=== PATIENT | female | born 2000 | race Caucasian/White ===

== ENCOUNTER 2023-02-23 01:06 | Emergency (ER) | payer OTHER, SELFPAY ==
[2023-02-23 01:12] VITALS: BP 152/111; PULSE 111; RESP 14; TEMP 37.1; O2SAT 100
--- NOTE | 2023-02-23 01:32 | PC.NURSE ---
pt sts that 2 days ago pt noticed a bump on her labia. pt has not looked at bump. pt only wants females
--- NOTE | 2023-02-23 01:52 | ED.GENADULT ---
HPI - General Adult General Chief complaint: Unspecified Stated complaint: STI testing Time Seen by Provider: 02/23/23 01:43 Source: patient Mode of arrival: ambulatory Limitations: no limitations History of Present Illness HPI narrative: Patient is a 22 y/o female who presents to the ED with c/o concern for STDs. Patient reports she noticed a bump on her left inner labia tonight. She is concerned for herpes or genital warts. She denies recent STD exposure and states she is in a monogamous relationship with her currently. She is worried about latent herpes however. She denies any pain or burning associated with the bump. She does report mild dysuria. Denies hematuria. Denies fevers. Denies abnormal vaginal bleeding or discharge. Related Data Allergies Allergy/AdvReac Type Severity Reaction Status Date / Time No Known Allergies Allergy Verified 02/23/23 01:35 Review of Systems Review of Systems: CONSTITUTIONAL: Denies fever, chills, or sweats. CARDIOVASCULAR: Denies chest pain. RESPIRATORY: Denies dyspnea. GASTROINTESTINAL: Denies abdominal pain, nausea, vomiting, or diarrhea. GENITOURINARY: See HPI. SKIN: Denies rash or itching. MUSCULOSKELETAL: Denies back pain, joint pain, or myalgia. All systems reviewed & are unremarkable except as noted in HPI and below Exam Narrative: GENERAL: Well appearing, obese with BMI 49.3, non-toxic, in no acute distress. HEAD: Normocephalic, atraumatic. NECK: Supple. No adenopathy, no masses. RESPIRATORY: Airway patent, respirations nonlabored. CARDIOVASCULAR: Regular rate and rhythm without murmurs, rubs, or gallops. Peripheral pulses 2+ and equal bilaterally. ABDOMINAL: Soft, nontender, nondistended, no hepatosplenomegaly. Normoactive BS. PELVIC: Normal external genitalia. Small amount of physiologic vaginal discharge. No abnormal discharge or bleeding. No significant CMT. No genital lesions. No evidence of herpes simplex, HPV. MUSCULOSKELETAL: Moves all extremities. Strength/ROM intact without gross deformities. SKIN: Warm, dry, normal color. No rashes. NEURO: A&O X3. Speech clear. Cranial nerves II-XII grossly intact. Steady gait. No ataxic movements. PSYCHIATRIC: Anxious, tearful. Normal interaction. Course Vital Signs Vital signs: Vital Signs Temperature 98.7 F 02/23/23 01:12 Pulse Rate 111 H 02/23/23 01:12 Respiratory Rate 14 02/23/23 01:12 Blood Pressure 152/111 H 02/23/23 01:12 Pulse Oximetry 100 02/23/23 01:12 Oxygen Delivery Room Air 02/23/23 01:12 Temperature 98.7 F 02/23/23 01:12 Pulse Rate 111 H 02/23/23 01:12 Respiratory Rate 14 02/23/23 01:12 Blood Pressure 152/111 H 02/23/23 01:12 Pulse Oximetry 100 02/23/23 01:12 Oxygen Delivery Room Air 02/23/23 01:12 Medical Decision Making MDM Narrative Medical decision making narrative: Urine consistent with UTI. Will treat as patient symptomatic. Keflex. Pelvic exam unremarkable. No signs of genital herpes lesions. No other significant abnormalities. Patient wanted to be tested for STDs, swabs sent. She does not want to be treated at this time. Will await results. Patient given return precautions. Discharged in stable condition. Medical Records Medical records reviewed: Yes I reviewed the external patient's medical records. Vital Signs Vital Signs: Vital Signs Temperature 98.7 F 02/23/23 01:12 Pulse Rate 111 H 02/23/23 01:12 Respiratory Rate 14 02/23/23 01:12 Blood Pressure 152/111 H 02/23/23 01:12 Pulse Oximetry 100 02/23/23 01:12 Oxygen Delivery Room Air 02/23/23 01:12 Temperature 98.7 F 02/23/23 01:12 Pulse Rate 111 H 02/23/23 01:12 Respiratory Rate 14 02/23/23 01:12 Blood Pressure 152/111 H 02/23/23 01:12 Pulse Oximetry 100 02/23/23 01:12 Oxygen Delivery Room Air 02/23/23 01:12 Lab Data Lab results reviewed: Yes I reviewed the patient's lab results. Labs: Lab Results 02/23/23 02/23/23 R
[2023-02-23 02:15] VITALS: BP 164/94; PULSE 84; RESP 16; TEMP 36.3; O2SAT 98
[2023-02-23 02:47] LABS: Appearance Urine Cloudy (Clear); Bacteria Urine 4+ /hpf; Bilirubin Urine Negative (Negative); Blood Urine Negative (Negative); Color Urine Yellow (Yellow); Glucose Urine UA Negative (Negative); Ketones Urine Trace mg/dL (Negative); Leukocyte Esterase Ur Trace LEU/UL (Negative); Need Manual Microscopic Reviewed; Nitrate Urine Negative (Negative); Protein Urine Negative (Negative); RBC Urine 21-50 /hpf (0-2); Specific Grav Ur 1.033 (1.001-1.035); Squamous Epithelial Cell Urine Few /hpf (Few); Urobilinogen Urine 0.2 mg/dL (<2.0); pH Urine 5.5 (5.0-9.0)
[2023-02-23 02:48] LABS: Add Urine Microscopic? YES
[2023-02-23] MEDS: CEPHALEXIN 500 MG CAPSULE PO (03:08)
== END 2023-02-23 03:12 | disposition home or self-care (01) ==
PROVIDERS: Emergency Provider Physician Assistant
DX: N30.01 Acute cystitis with hematuria (principal); Z20.2 Contact with and (suspected) exposure to infections with a predominantly sexual mode of transmission
CPT/HCPCS: 81001; 87070; 87077; 87086; 87088; 87186; 87491; 87591; 87808; 99284; A9270

== ENCOUNTER 2023-04-16 21:43 | Emergency (ER) | payer OTHER, SELFPAY ==
--- NOTE | ~2023-04-16 | XR_ITS ---
EXAMINATION: XR chest 2V Exam Date/Time: 04/16/2023 21:55 CDT HISTORY: chest pressure, sob Comparison: None. RESULT: Lines, tubes, and devices: None. Lungs and pleura: Clear. Cardiomediastinal silhouette: Normal. Other: No acute osseous or upper abdominal finding. IMPRESSION: No acute cardiopulmonary process. Reviewed, dictated and finalized at location K.
--- NOTE | 2023-04-16 21:44 | ECG_ITS ---
Measurements Intervals [place] Rate: 91 P: 17 MS: 148 QRS: -20 QRSD: 94 T: -3 QT: 366 QTc: 451 Interpretive Statements SINUS RHYTHM VOLTAGE CRITERIA FOR LVH BORDERLINE R WAVE PROGRESSION, ANTERIOR LEADS BORDERLINE T WAVE ABNORMALITY- ANT/INF LEADS BORDERLINE ECG NO PREVIOUS ECG AVAILABLE FOR COMPARISON Electronically Signed On 04-17-2023 7:02:59 CDT by Geoff Ashford D.O.
[2023-04-16 21:49] VITALS: BP 139/87; PULSE 89; RESP 20; TEMP 37; O2SAT 100
[2023-04-16 21:58] LABS: Basophils Absolute Auto 0.1 K/mm3 (0.0-0.1); Basophils Percent Auto 0.6 % (0.2-1.2); Eosinophils Absolute Auto 0.7 K/mm3 (0-0.3); Eosinophils Percent Auto 7.3 % (0-4.4); Hematocrit 41.5 % (37.0-47.0); Hemoglobin 13.8 g/dL (12.0-15.0); Immature Granulocyte Absolute 0.01 K/mm3 (0.00-0.031); Immature Granulocyte Percent A 0.1 % (0-0.5); Lymphocytes Absolute Auto 3.56 K/mm3 (0.9-3.2); Lymphocytes Percent Auto 39.9 % (18.3-44.2); Mean Corpuscular HGB Conc 33.3 g/dl (32-36); Mean Corpuscular Hemoglobin 28.8 pg (26-34); Mean Corpuscular Volume 86.5 fl (80-100); Mean Platelet Volume 11.4 fl (7.4-10.4); Monocytes Absolute Auto 0.8 K/mm3 (0.1-0.6); Monocytes Percent Auto 8.6 % (2.6-8.5); Neutrophils Absolute Auto 3.9 K/mm3 (1.3-6.7); Neutrophils Percent Auto 43.5 % (45.5-73.1); Platelet Count Result 260 k/mm3 (150-375); Red Cell Distribution Width 13.4 % (11.5-14.5); White Blood Count 8.9 K/mm3 (4.5-10.0)
[2023-04-16 22:08] LABS: Alanine Aminotransferase 28 U/L (6-35); Albumin Level 4.4 g/dL (3.5-5.1); Alkaline Phosphatase 75 U/L (38-126); Anion Gap 9 mmol/L (8-16); Aspartate Amino Transferase 32 U/L (14-36); Bilirubin,Total 0.7 mg/dL (0.2-1.3); Blood Urea Nitrogen 15 mg/dL (7-17); Calcium 9.2 mg/dL (8.4-10.2); Carbon Dioxide 24 mmol/L (22-30); Chloride 105 mmol/L (98-107); Estimated CRCL calculation 141 ml/min; Estimated Glomerular Filt Rate > 60; Glucose 101 mg/dL (65-110); Potassium 3.8 mmol/L (3.4-5.0); Sodium 138 mmol/L (137-145)
[2023-04-16 23:59] VITALS: O2SAT 100
--- NOTE | 2023-04-17 00:03 | ED.SOB ---
HPI - SOB/Dyspnea General Chief Complaint: Shortness of Breath/Dyspnea Stated Complaint: SOB, dizzy Time Seen by Provider: 04/16/23 23:58 History of Present Illness HPI Narrative: Patient is a 22-year-old female presenting with an episode of shortness of breath. States that earlier she felt very short of breath as well as lightheaded. States that she has been having nasal congestion which is typical of her seasonal allergies. States that she is also concerned that she has had a UTI for a very long time. States that she was started on antibiotics many weeks ago, she cannot remember when. States that she sometimes will take the antibiotics but usually she forgets. She continues to have dysuria and urinary frequency. No further complaints. Related Data Allergies Allergy/AdvReac Type Severity Reaction Status Date / Time No Known Allergies Allergy Verified 02/23/23 01:35 Review of Systems Review of Systems: All systems reviewed & are unremarkable except as noted in HPI and below Exam Narrative: GENERAL: Well-appearing, in no acute distress HEAD: Normocephalic, atraumatic. EYES: PERRLA and EOMI. ENT: Grossly unremarkable NECK: Supple. CHEST: Clear to auscultation. No respiratory distress. HEART: Regular rate and rhythm ABDOMEN: Soft, nontender, nondistended EXTREMITIES: Normal range of motion. No edema. SKIN: Warm, dry, no rash. NEURO: No focal deficits. Alert and oriented x3. PSYCH: Normal mood and affect. Course Vital Signs Vital signs: Vital Signs Temperature 98.6 F 04/16/23 21:49 Pulse Rate 89 04/16/23 21:49 Respiratory Rate 20 04/16/23 21:49 Blood Pressure 139/87 04/16/23 21:49 Pulse Oximetry 100 04/16/23 21:49 Oxygen Delivery Room Air 04/16/23 21:49 Temperature 98.6 F 04/16/23 21:49 Pulse Rate 73 04/17/23 00:35 Respiratory Rate 23 H 04/17/23 00:35 Blood Pressure 139/87 04/16/23 21:49 Pulse Oximetry 100 04/17/23 00:35 Oxygen Delivery Room Air 04/16/23 23:59 MDM - SOB/Dyspnea MDM Narrative Medical decision making narrative: Patient is a 22-year-old female presenting with an episode of shortness of breath earlier today as well as dysuria. Vitals are normal. Saturating 100% on room air. Exam is unremarkable. EKG per my interpretation shows normal sinus rhythm, left axis deviation, no ST elevations or depressions. Chest x-ray without acute abnormalities. UA is unremarkable. Urine Prag negative. Negative for COVID and influenza. Patient is asking to go home which I think is reasonable. Vitals remain normal. Discussed appropriate supportive care. Advised PCP follow-up. Appropriate return precautions given. Discharged in stable condition. Differential Diagnosis Differential diagnosis: Likely other (Dyspnea, dysuria, viral URI, nasal congestion) Medical Records Attestation: I reviewed the patient's medical records. Lab Data Attestation: I reviewed the patient's lab results. 04/16/23 21:53 04/16/23 21:53 Labs: Lab Results 04/16/23 04/17/23 04/17/23 Range/Units 21:53 00:08 00:10 WBC 8.9 (4.5-10.0) K/mm3 RBC 4.80 (4.2-5.4) M/mm3 Hgb 13.8 (12.0-15.0) g/dL Hct 41.5 (37.0-47.0) % MCV 86.5 (80-100) fl MCH 28.8 (26-34) pg MCHC 33.3 (32-36) g/dl RDW 13.4 (11.5-14.5) % Plt Count 260 (150-375) k/mm3 MPV 11.4 H (7.4-10.4) fl Immature Gran % (Auto) 0.1 (0-0.5) % Neut % (Auto) 43.5 L (45.5-73.1) % Lymph % (Auto) 39.9 (18.3-44.2) % [place] % (Auto) 8.6 H (2.6-8.5) % Eos % (Auto) 7.3 H (0-4.4) % Baso % (Auto) 0.6 (0.2-1.2) % Lymph # (Auto) 3.56 H (0.9-3.2) K/mm3 [place] # (Auto) 0.8 H (0.1-0.6) K/mm3 Eos # (Auto) 0.7 H (0-0.3) K/mm3 Baso # (Auto) 0.1 (0.0-0.1) K/mm3 Abs Immat Gran (auto) 0.01 (0.00-0.031) K/mm3 Absolute Neuts (auto) 3.9 (1.3-6.7) K/mm3 Absolute Nucleated RBC 0.0 (0.0-0.012) K/mm3 Nucleated RBC % 0.0
[2023-04-17 00:26] LABS: Appearance Urine Cloudy (Clear); Bacteria Urine Rare /hpf; Bilirubin Urine Negative (Negative); Blood Urine 2+ (Negative); Color Urine Yellow (Yellow); Glucose Urine UA Negative (Negative); Ketones Urine Negative (Negative); Leukocyte Esterase Ur Negative LEU/UL (Negative); Nitrate Urine Negative (Negative); Non Pathogenic Casts 0-2; Protein Urine Negative (Negative); RBC Urine 0-2 /hpf (0-2); Specific Grav Ur 1.027 (1.001-1.035); Squamous Epithelial Cell Urine Few /hpf (Few); WBC Urine 0-5 /hpf
[2023-04-17 00:35] VITALS: PULSE 73; RESP 23; O2SAT 100
[2023-04-17 00:38] LABS: Add Urine Microscopic? YES
[2023-04-17 00:53] LABS: Influenza A QL RT-PCR Negative (Negative); Influenza B QL RT-PCR Negative (Negative); SARS-CoV-2 RNA PCR Negative (Negative)
[2023-04-17 01:17] LABS: Pregnancy On Board Control Positive; Urine Pregnancy Test Negative
== END 2023-04-17 02:15 | disposition home or self-care (01) ==
PROVIDERS: Emergency Provider Emergency Medicine
DX: R06.02 Shortness of breath (principal); Z20.822 Contact with and (suspected) exposure to COVID-19; R94.31 Abnormal electrocardiogram [ECG] [EKG]
CPT/HCPCS: 36415; 71046; 80053; 81001; 81025; 85025; 87636; 93005; 99284

== ENCOUNTER 2023-09-27 10:07 | Emergency (ER) | payer OTHER, SELFPAY ==
--- NOTE | 2023-09-27 10:12 | ED.FEMALEGU ---
HPI - Female Genitourinary General Chief complaint: Urogenital-Female Stated complaint: Headache/Vomiting/Diarrhea/Uti symptoms Source: patient, family and RN notes reviewed Mode of arrival: ambulatory Limitations: no limitations History of Present Illness HPI Narrative: Patient is a 22-year-old female who presents to the [facility] with multiple complaints. Patient states that she started having some mild dysuria 4 days ago. Three days ago, she developed a headache, nausea, vomiting, and diarrhea. She denies abdominal pain at this time. Denies blood in the vomit or stool. Patient states that she has vomited times once this morning. She has had multiple episodes of diarrhea over the last few days. She denies recent fevers. States that she is able to hold down some fluids and food. Unsure of any known sick contacts. Related Data Home Medications Medication Instructions Recorded Confirmed escitalopram oxalate 10 mg tablet 10 mg PO DAILY 09/27/23 09/27/23 Allergies Allergy/AdvReac Type Severity Reaction Status Date / Time No Known Allergies Allergy Verified 09/27/23 10:20 Review of Systems Review of Systems: CONSTITUTIONAL: Denies fever, chills, or sweats. EYES: Denies visual changes, redness, or discharge. ENT: Denies otalgia and sore throat. CARDIOVASCULAR: Denies chest pain, palpitations, or edema. RESPIRATORY: Denies cough or dyspnea. GASTROINTESTINAL: Denies abdominal pain, but reports nausea, vomiting, and diarrhea. GENITOURINARY: Reports dysuria but denies hematuria. SKIN: Denies rash or itching. MUSCULOSKELETAL: Denies back pain, joint pain, or myalgia. NEUROLOGIC: Denies numbness or weakness. Reports headache. Pertinent positives per HPI. PMFSH Comments At the time of my signature, I reviewed and agree with the nursing past medical, surgical, social, and family history. There is no relevant family history pertinent to the patient complaint. Exam Narrative: GENERAL: This is a well-nourished, well-developed patient, in no apparent distress. HEAD: normocephalic, atraumatic. EYES: PERRL. Sclera clear/white. Vision is grossly intact. EARS: External ears normal, auditory canals clear and without drainage, TMs normal without perforation. Hearing grossly intact. NOSE: External nose normal with no obvious nasal discharge, nares without redness, no rhinorrhea. THROAT: Mucous membranes moist, posterior pharynx clear. NECK: Neck supple, non-tender without lymphadenopathy, masses or thyromegaly. CARDIOVASCULAR: Regular rate and rhythm without murmurs, gallops, or rubs. RESPIRATORY: Clear to auscultation. Breath sounds equal bilaterally. No wheezes, rales, or rhonchi. GASTROINTESTINAL: Abdomen soft, non-tender, nondistended. Bowel sounds are active. No hepato-splenomegaly, or palpable masses. No guarding. SKIN: warm, intact with no suspicious lesions or rash, good texture and turgor. NEURO: awake, alert, and oriented to person, place and time. There were no obvious focal neurologic abnormalities. EXTREMITIES: No clubbing, cyanosis, or edema. No joint tenderness, effusion, or edema noted. BACK: Nontender without deformity or crepitance. No flank tenderness. Course Course Level of Care: Express Care Visit Vital Signs Vital signs: Vital Signs Temperature 98.5 F 09/27/23 10:20 Pulse Rate 106 H 09/27/23 10:20 Respiratory Rate 16 09/27/23 10:20 Blood Pressure 131/93 H 09/27/23 10:20 Pulse Oximetry 99 09/27/23 10:20 Temperature 98.5 F 09/27/23 10:24 Pulse Rate 106 H 09/27/23 10:24 Respiratory Rate 16 09/27/23 10:24 Blood Pressure 131/93 H 09/27/23 10:24 Pulse Oximetry 99 09/27/23 10:24 Reviewed MDM - Female Genitourinary Differential Diagnosis Differential diagnosis: Likely urinary tract infection, vaginitis and cystitis (covid, influenza, viral gastroenteritis) Lab Data Attestation: I reviewed the patient's lab results. Labs: Urine Glucose
[2023-09-27 10:20] VITALS: BP 131/93; PULSE 106; RESP 16; TEMP 36.9; O2SAT 99
[2023-09-27 10:24] VITALS: BP 131/93; PULSE 106; RESP 16; TEMP 36.9; O2SAT 99
== END 2023-09-27 10:48 | disposition home or self-care (01) ==
PROVIDERS: Emergency Provider Nurse Practitioner
DX: A08.4 Viral intestinal infection, unspecified (principal); Z20.822 Contact with and (suspected) exposure to COVID-19
CPT/HCPCS: 81003; 87426; 87804; 99213; G0463

== ENCOUNTER 2024-03-15 15:52 | Emergency (ER) | payer OTHER, SELFPAY ==
--- NOTE | ~2024-03-15 | XR_ITS ---
EXAMINATION: XR chest 2V Exam Date/Time: 03/15/2024 16:18 CDT HISTORY: productive cough; sob Comparison: 04/16/2023. RESULT: Lines, tubes, and devices: None. Lungs and pleura: Clear. Cardiomediastinal silhouette: Stable. Other: No acute osseous or upper abdominal finding. IMPRESSION: No acute cardiopulmonary process. Reviewed, dictated and finalized at location K.
--- NOTE | 2024-03-15 15:58 | ED.GENADULT ---
HPI - General Adult General Chief complaint: Upper Respiratory Infection Stated complaint: WHEEZING Time Seen by Provider: 03/15/24 15:59 Source: patient, RN notes reviewed and old records reviewed Mode of arrival: ambulatory Limitations: no limitations History of Present Illness HPI narrative: 23-year-old female to Express Care with complaint of productive cough and wheezing intermittently for 1 month. Patient states that she called her primary care provider today and was advised to be seen in clinic today for chest x-ray. Patient has appointment with provider tomorrow. Patient denies history of asthma, pneumonia or other pertinent history. Patient denies shortness of breath, difficulty swallowing, sore throat, fever, headache, fatigue, allergies. Patient resting in exam room in no acute distress. Respirations even and nonlabored. Patient able to tolerate fluids by mouth. Patient in no acute distress. Related Data Home Medications Medication Instructions Recorded Confirmed clonidine HCl 0.1 mg 0.1 mg PO DAILY 03/15/24 03/15/24 tablet,extended release,12 hr lamotrigine 25 mg tablet 25 mg PO USEASDIRECTD 03/15/24 03/15/24 Allergies Allergy/AdvReac Type Severity Reaction Status Date / Time No Known Allergies Allergy Verified 03/15/24 16:07 Review of Systems Review of Systems: All systems reviewed & are unremarkable except as noted in HPI and below Constitutional: Constitutional: Reports no additional constitutional complaints Eyes: Eyes: Reports no additional eye complaints ENT: Reports system reviewed and no additional complaints, except as documented Cardiovascular: Cardiovascular: Reports no additional cardiovascular complaints, Denies chest pain and Denies dyspnea Respiratory: Respiratory: Reports no additional respiratory complaints, Reports change in phlegm color, Reports cough, Denies dyspnea and Reports wheezing Musculoskeletal: Musculoskeletal: Reports no additional musculoskeletal complaints Neurologic: Reports system reviewed and no additional complaints, except as documented Psychiatric: Psychiatric: Reports no additional psychiatric complaints PMFSH Comments At the time of my signature, I reviewed and agree with the nursing past medical, surgical, social, and family history. There is no relevant family history pertinent to the patient complaint. Exam Const: General: cooperative, comfortable, no acute distress, alert, tired appearing and well nourished Nutritional Appearance: well nourished Orientation/consciousness: patient oriented x3 Limitations: no limitations HENMT: Head: normal to inspection Ears: Abnormal EAC present EAC tenderness bilateral and TM abnormal dull on the right, erythematous on the right and with fluid behind the TM on the right Face/Nose/Sinus: Normal external nose present, Normal nares present, normal facial exam, No erythema and No edema Face and sinus: normal facial exam, no erythema and no edema Mouth: Yes Normal oral and palatal mucosa present Throat: postnasal drainage Eyes: General: appearance normal, both eyes and all related structures Neck: Neck: normal visual inspection, full ROM and no meningeal signs Lymphatic: no lymphadenopathy noted and no lymphedema noted Chest: Chest palpation & inspection: normal inspection of the chest Resp: Effort & Inspection: normal respiratory effort and able to speak in complete sentences Auscultation: clear to auscultation bilaterally, no crackles, no rales, no rhonchi, no wheezes, no bronchial breath sounds and no bronchovesicular breath sounds Cardio: Jugular venous distension: no JVD Rate: regular rate Rhythm: regular rhythm Back/Spine/Pelvis: Cervical Spine: cervical ROM normal Skin: General skin exam: normal color, no rashes or lesions noted and turgor normal Neuro: General: patient oriented x3, gait normal, moves all extremities and no meningeal signs Speech: normal speech Gait exam (Neuro): Normal gait pr
[2024-03-15 16:06] VITALS: BP 130/90; PULSE 93; RESP 16; TEMP 36.2; O2SAT 100
[2024-03-15 16:08] VITALS: BP 130/90; PULSE 93; RESP 16; TEMP 36.2; O2SAT 100
== END 2024-03-15 17:12 | disposition home or self-care (01) ==
PROVIDERS: Emergency Provider Nurse Practitioner Family
DX: H66.91 Otitis media, unspecified, right ear (principal); K21.9 Gastro-esophageal reflux disease without esophagitis
CPT/HCPCS: 71046; 99213; G0463

== ENCOUNTER 2024-04-11 09:43 | Emergency (ER) | payer OTHER, SELFPAY ==
[2024-04-11 09:55] VITALS: BP 125/96; PULSE 80; RESP 16; TEMP 36.6; O2SAT 99
--- NOTE | 2024-04-11 10:12 | ED.URI ---
HPI - URI/Sore Throat General Chief Complaint: Upper Respiratory Infection Stated Complaint: SORE THROAT/COVID EXPOSURE Time Seen by Provider: 04/11/24 10:06 Source: patient, RN notes reviewed and old records reviewed Mode of arrival: ambulatory Limitations: no limitations History of Present Illness HPI Narrative: 23 year old female with complaints of sore throat since yesterday, denies any fevers, chills, nausea or vomiting or diarrhea,no cough or any shortness of breath. Patient reports that family members in her home recently tested positive for COVID and would like to be tested. Patient reports that she has been COVID vaccinated. MD elicited complaint: sore throat and other ( exposure COVID) Onset (ago): day(s) (2) Severity: mild Able to tolerate fluids by mouth: Yes Treatments prior to arrival: none Related Data Home Medications Medication Instructions Recorded Confirmed clonidine HCl 0.1 mg 0.1 mg PO DAILY 03/15/24 04/11/24 tablet,extended release,12 hr lamotrigine 25 mg tablet 200 mg PO USEASDIRECTD 03/15/24 04/11/24 Allergies Allergy/AdvReac Type Severity Reaction Status Date / Time No Known Allergies Allergy Verified 04/11/24 10:03 Review of Systems Review of Systems: CONSTITUTIONAL: Denies malaise, chills, sweats, or fever. EYES: Denies visual changes, redness, or discharge. ENT: Reports no rhinorrhea, congestion, sinus pain, otalgia and positive for sore throat. CARDIOVASCULAR: Denies chest pain, palpitations, or edema. RESPIRATORY: Reports no cough.? Denies dyspnea. GASTROINTESTINAL: Denies abdominal pain, nausea, vomiting, diarrhea SKIN: Denies rash or itching. MUSCULOSKELETAL: Denies myalgia. NEUROLOGIC: Denies headache. All systems reviewed & are unremarkable except as noted in HPI and below PMFSH Past Medical History Medical History (Updated 04/13/24 @ 10:07 by Yessica Miller NP) Anxiety Bipolar 1 disorder GERD (gastroesophageal reflux disease) Ulcer Social History Social History (Updated 04/13/24 @ 10:04 by Yessica Miller NP) Smoking status: Current every day smoker Tobacco type: e-cigarettes/vaping Alcohol intake: current Alcohol use details: social Substance use type: does not use Living arrangements: with family Gender identity (if verbalized by the patient): Female Comments At time of signature, agree with nursing past medical, surgical, social and family history. There is no relevant family history pertinent to the presenting complaint Exam Narrative: GENERAL: Well-appearing, well-nourished, and in no acute distress. HEAD: Normocephalic EYES: PERRLA, conjunctivae clear ENT: Nares clear, turbinates edematous and erythematous, clear discharge. Mucous membranes moist. TM pearly olvera with dull light reflex bilaterally; no tragal tenderness. Oropharynx erythematous without lesions. Tonsils not enlarged and without exudate, no drooling, no hoarseness, no trismus, uvula midline. NECK: Supple. No lymphadenopathy CHEST: Clear to auscultation, breath sounds equal. No wheezing, rhonchi, rales, or stridor. No respiratory distress, speaks in full sentences.no cough noted SAO2 99% on room air HEART: Regular rate and rhythm. No murmur heard. SKIN: Warm, dry, no rash. NEURO: Alert and oriented x3. PSYCH: Normal mood and affect, anxious Course Course Emergency Course: Patient is aware of diagnosis, understands and agrees to treatment plan.? Anticipatory guidance given.? Patient agrees to follow-up as directed and is aware of reasons to seek care at the emergency department. Portions of this record may have been created with voice recognition software Level of Care: Express Care Visit Vital Signs Vital signs: Vital Signs Temperature 36.6 C 04/11/24 09:55 Pulse Rate 80 04/11/24 09:55 Respiratory Rate 16 04/11/24 09:55 Blood Pressure 125/96 H 04/11/24 09:55 Pulse Oximetry 99 04/11/24 09:55 [place]
[2024-04-11 10:18] LABS: EDSTREPNEGPOS1 Negative (Negative)
[2024-04-11 10:31] LABS: EDCOVIDSCREEN Negative (Negative)
== END 2024-04-11 10:30 | disposition home or self-care (01) ==
PROVIDERS: Emergency Provider Registered Nurse
DX: J02.9 Acute pharyngitis, unspecified (principal); Z20.822 Contact with and (suspected) exposure to COVID-19; F17.290 Nicotine dependence, other tobacco product, uncomplicated; K21.9 Gastro-esophageal reflux disease without esophagitis; F31.9 Bipolar disorder, unspecified; F41.9 Anxiety disorder, unspecified
CPT/HCPCS: 87081; 87635; 87880; 99213; G0463

== ENCOUNTER 2024-07-14 12:04 | Emergency (ER) | payer OTHER, SELFPAY ==
[2024-07-14 12:27] VITALS: BP 130/80; PULSE 82; RESP 16; TEMP 36.4; O2SAT 100
[2024-07-14 12:57] LABS: EDSTREPNEGPOS1 Negative (Negative)
--- NOTE | 2024-07-14 13:09 | ED_ITS ---
HPI - URI/Sore Throat General Chief Complaint: Upper Respiratory Infection Stated Complaint: Sore Throat Time Seen by Provider: 07/14/24 13:09 Source: patient and RN notes reviewed Mode of arrival: ambulatory Limitations: no limitations History of Present Illness HPI Narrative: 23-year-old female presents concern for sore throat, ear pain, sinus congestion for about 3 days. She denies fever, aches, chills, sweats MD elicited complaint: sore throat Related Data Home Medications ?Medication ?Instructions ?Recorded ?Confirmed ?Last Taken ?Type clonidine HCl 0.1 mg 0.1 mg PO DAILY 03/15/24 04/11/24 Unknown History tablet,extended release,12 hr lamotrigine 25 mg tablet 200 mg PO USEASDIRECTD 03/15/24 04/11/24 Unknown History hydroxyzine HCl 50 mg tablet mg 07/14/24 Unknown History lamotrigine 200 mg tablet mg 07/14/24 Unknown History Allergies Allergy/AdvReac Type Severity Reaction Status Date / Time No Known Allergies Allergy Verified 07/14/24 13:04 Review of Systems Review of Systems: CONSTITUTIONAL: Denies malaise, chills, sweats, or fever. EYES: Denies visual changes, redness, or discharge. ENT: Reports rhinorrhea, congestion, otalgia and sore throat. CARDIOVASCULAR: Denies chest pain, palpitations, or edema. RESPIRATORY: Denies cough. Denies dyspnea. GASTROINTESTINAL: Denies abdominal pain, nausea, vomiting, diarrhea SKIN: Denies rash or itching. MUSCULOSKELETAL: Denies myalgia. NEUROLOGIC: Denies headache. All systems reviewed & are unremarkable except as noted in HPI and below PMFSH Past Medical History Medical History (Updated 07/14/24 @ 13:13 by Violeta Swann NP) Ulcer GERD (gastroesophageal reflux disease) Anxiety Bipolar 1 disorder Social History Social History (Updated 04/13/24 @ 10:04 by Yessica Miller NP) Smoking status: Current every day smoker Tobacco type: e-cigarettes/vaping Alcohol intake: current Alcohol use details: social Substance use type: does not use Living arrangements: with family Gender identity (if verbalized by the patient): Female Comments At time of signature, agree with nursing past medical, surgical, social and family history. There is no relevant family history pertinent to the presenting complaint Exam Narrative: GENERAL: Well-appearing, well-nourished, and in no acute distress. HEAD: Normocephalic EYES: PERRLA, conjunctivae clear ENT: Nares clear. Mucous membranes moist. TM pearly olvera with sharp light reflex bilaterally; no tragal tenderness. Oropharynx erythematous without lesions. Tonsils not enlarged and without exudate, no drooling, no hoarseness, no trismus, uvula midline. NECK: Supple. No lymphadenopathy CHEST: Clear to auscultation, breath sounds equal. No wheezing, rhonchi, rales, or stridor. No respiratory distress, speaks in full sentences. HEART: Regular rate and rhythm. No murmur heard. SKIN: Warm, dry, no rash. NEURO: Alert and oriented x3. PSYCH: Normal mood and affect Course Course Emergency Course: Patient is aware of diagnosis, understands and agrees to treatment plan. Anticipatory guidance given. Patient agrees to follow-up as directed and is aware of reasons to seek care at the emergency department. Portions of this record may have been created with voice recognition software Level of Care: Express Care Visit Vital Signs Vital signs: Vital Signs Temperature 97.6 F 07/14/24 12:27 Pulse Rate 82 07/14/24 12:27 Respiratory Rate 16 07/14/24 12:27 Blood Pressure 130/80 07/14/24 12:27 Pulse Oximetry 100 07/14/24 12:27 Temperature 97.6 F 07/14/24 12:27 Pulse Rate 82 07/14/24 12:27 Respiratory Rate 16 07/14/24 12:27 Blood Pressure 130/80 07/14/24 12:27 Pulse Oximetry 100 07/14/24 12:27 Reviewed. MDM - URI/Sore Throat MDM Narrative Medical decision making narrative: Differential diagnosis considered: Pablo virus, strep pharyngitis, allergic rhinitis, upper respiratory tract infection, sinusitis, rhinosinusitis, nasopharyngitis. viral pharyngitis, otitis media, otitis externa, pneumonia, bronchitis, viral cough syndrome, viral syndrome, and influenza. Exam findings show no acute concerns or changes; patient is non-toxic appearing and is in no distress. Patient is appropriate for outpatient treatment and follow-up. Lab Data Attestation: I reviewed the patient's lab results. Labs: Lab Results 07/14/24 Range/Units 12:55 POC Grp A Strep Screen Negative (Negative) Critical Care Time Critical Care Time Critical Care Time: No Discharge Plan Discharge Clinical Impression: Upper respiratory infection Patient Disposition: Home, Self-Care Condition: Stable Instructions: Upper Respiratory Infection (ED) Additional Instructions: Your rapid strep swab was negative today at [facility]. A throat culture will be sent to the laboratory for further testing. If the test is positive, you will receive a phone call within 48 hours and an appropriate antibiotic will be initiated at that time. Your symptoms are likely due to a viral illness, which is not treated with antibiotics. Viral symptoms can be present for up to a few weeks. -Alternate Tylenol and Motrin per package directions for fever or pain. -Antihistamine medication such as Benadryl at night and Zyrtec during the day can help improve symptoms. -Eat and drink things that are easy to swallow, like tea or soup, or popsicles to suck on. -Oral rinses such as: Salt water gargles and/or may use topical anesthetic (eg. Chloraseptic spray) or lozenges to relieve dryness or throat pain). -Frequent hand washing or hand recyclable materials collector is one of the best ways to prevent spread of infection. -Follow up with primary care provider in 2-3 days if condition is not improving; or seek ER visit if you have trouble breathing, cannot drink enough fluids, have muffled voice, difficulty opening your mouth, or severe swelling. Patient Language: Syrian Prescriptions: New methylprednisolone [Medrol (Gurmeet)] 4 mg tablets,dose pack See Rx Instructions .ROUTE .COMPLEX Qty: 21 0RF Rx Instructions: orally per package directions No Action lamotrigine 25 mg tablet 200 mg PO USEASDIRECTD clonidine HCl 0.1 mg tablet extended release 12 hr 0.1 mg PO DAILY lamotrigine 200 mg tablet hydroxyzine HCl 50 mg tablet Follow-up/Referrals: PHYSICIAN,WATCH CASE POLISHER [Primary Care Provider] - Time of Disposition: 13:14
== END 2024-07-14 13:17 | disposition home or self-care (01) ==
PROVIDERS: Emergency Provider Nurse Practitioner
DX: J06.9 Acute upper respiratory infection, unspecified (principal); F17.290 Nicotine dependence, other tobacco product, uncomplicated; Z79.899 Other long term (current) drug therapy; Z20.822 Contact with and (suspected) exposure to COVID-19
CPT/HCPCS: 87081; 87880; 99213; G0463

== ENCOUNTER 2024-07-17 14:44 | Emergency (ER) | payer OTHER, SELFPAY ==
[2024-07-17 14:54] VITALS: BP 137/81; PULSE 92; RESP 16; TEMP 37.1; O2SAT 99
--- NOTE | 2024-07-17 15:23 | ED.EAR ---
HPI - Ear Problem General Chief complaint: Ear Stated complaint: Ear Pain Time Seen by Provider: 07/17/24 15:00 Source: patient Mode of arrival: ambulatory Limitations: no limitations History of Present Illness HPI Narrative: Anayeli is a 23-year-old female patient presenting to the clinic today with complaints of right ear pain. She was seen in the clinic 2 days ago and diagnosed with a URI and given a steroid. States that the ear pain got worse today. No fevers or chills. Related Data Home Medications ?Medication ?Instructions ?Recorded ?Confirmed ?Last Taken ?Type clonidine HCl 0.1 mg 0.1 mg PO DAILY 03/15/24 04/11/24 Unknown History tablet,extended release,12 hr lamotrigine 25 mg tablet 200 mg PO USEASDIRECTD 03/15/24 04/11/24 Unknown History hydroxyzine HCl 50 mg tablet mg 07/14/24 Unknown History lamotrigine 200 mg tablet mg 07/14/24 Unknown History Allergies Allergy/AdvReac Type Severity Reaction Status Date / Time No Known Allergies Allergy Verified 07/14/24 13:04 Review of Systems Review of Systems: Pertinent positives per HPI. Patient denies any fever, chills, rash, headache, visual changes, dizziness, sore throat, shortness of breath, chest pain, palpitations, nausea, vomiting, diarrhea, constipation, abdominal pain, or any urinary issues. PMFSH Past Medical History Medical History Ulcer GERD (gastroesophageal reflux disease) Anxiety Bipolar 1 disorder Social History Social History Smoking status: Current every day smoker Tobacco type: e-cigarettes/vaping Alcohol intake: current Alcohol use details: social Substance use type: does not use Living arrangements: with family Gender identity (if verbalized by the patient): Female Comments At the time of my signature, I reviewed and agree with the nursing past medical, surgical, social, and family history. There is no relevant family history pertinent to the patient complaint. Exam Narrative: General: Well-developed, well nourished, in no apparent distress Head: Normocephalic, atraumatic Eyes: Pupils equally round and reactive to light bilaterally, EOM intact, sclera and conjunctive clear, no discharge, lids normal Ears: Left TMs intact and clear, right TM intact, bulging, red, ear canals clear, no drainage, grossly hearing normal. Nose: Nares patent, clear nasal discharge, no inflammation, no sinus tenderness. Mouth: Oropharynx without lesions or masses, good dentition, MMM. Neck: Supple, trachea midline, no enlargement of anterior or posterior cervical nodes, no thyroid masses or goiter palpable. Cardio: Regular rate and rhythm, s1 and s2 normal, no murmur appreciated. Resp: Clear to auscultation bilaterally anteriorly and posteriorly, no rhonchi, rales, wheezing or rubs Course Course Emergency Course: Portions of this record may have been created with voice recognition software. Level of Care: Express Care Visit Vital Signs Vital signs: Vital Signs Temperature 37.1 C 07/17/24 14:54 Pulse Rate 92 07/17/24 14:54 Respiratory Rate 16 07/17/24 14:54 Blood Pressure 137/81 07/17/24 14:54 Pulse Oximetry 99 07/17/24 14:54 Temperature 37.1 C 07/17/24 14:54 Pulse Rate 92 07/17/24 14:54 Respiratory Rate 16 07/17/24 14:54 Blood Pressure 137/81 07/17/24 14:54 Pulse Oximetry 99 07/17/24 14:54 Vital signs reviewed Medical Decision Making MDM Narrative Medical decision making narrative: At the time of visit patient is resting comfortably on the exam table. Patient appears to be nontoxic. Plan: I suspect patient has right otitis media. Prescription for amoxicillin was sent to the pharmacy. Supportive measures were discussed with the patient and they voiced understanding discharge instructions and agrees to treatment plan. Return precautions reviewed Differential Diagnosis Differential Diagnosis: Otitis media, otitis sternum eustachian tube dysfunction, cerumen impaction, upper respiratory infection, serous otitis Vital Signs Vital Signs: Vital Signs Temperature 37.1 C 07/17/24 14:54 Pulse Rate 92 07/17/24 14:54 Respiratory Rate 16 07/17/24 14:54 Blood Pressure 137/81 07/17/24 14:54 Pulse Oximetry 99 07/17/24 14:54 Temperature 37.1 C 07/17/24 14:54 Pulse Rate 92 07/17/24 14:54 Respiratory Rate 16 07/17/24 14:54 Blood Pressure 137/81 07/17/24 14:54 Pulse Oximetry 99 07/17/24 14:54 Discharge Plan Discharge Clinical Impression: Acute right otitis media Patient Disposition: Home, Self-Care Condition: Stable Instructions: Antibiotic Form, Ear Infection (ED) Additional Instructions: Take any prescribed medications only as directed-amoxicillin Tylenol/motrin as needed for pain May use heating pad to alleviate pain If you get recurrent ear infections it may be warranted to follow up with ENT. Follow up with your PCP in 3-5 days if symptoms persist. Patient Language: Cook Islander Prescriptions: New amoxicillin 875 mg tablet 875 mg PO Q12H 10 Days Qty: 20 0RF No Action lamotrigine 25 mg tablet 200 mg PO USEASDIRECTD clonidine HCl 0.1 mg tablet extended release 12 hr 0.1 mg PO DAILY lamotrigine 200 mg tablet hydroxyzine HCl 50 mg tablet methylprednisolone [Medrol ([place]urmeet)] 4 mg tablets,dose pack See Rx Instructions .ROUTE .COMPLEX Qty: 21 0RF Rx Instructions: orally per package directions Follow-up/Referrals: PHYSICIAN,PROJECT ARCHITECT [Primary Care Provider] - Time of Disposition: 15:03 Quality NIHSS Nursing Documentation ED NIHSS nursing documentation: reviewed/agree
== END 2024-07-17 15:06 | disposition home or self-care (01) ==
PROVIDERS: Emergency Provider Nurse Practitioner Family
DX: H66.91 Otitis media, unspecified, right ear (principal); F17.210 Nicotine dependence, cigarettes, uncomplicated
CPT/HCPCS: 99213; G0463

== ENCOUNTER 2024-10-14 17:09 | Emergency (ER) | payer OTHER, SELFPAY ==
--- NOTE | 2024-10-14 17:17 | ED.GENADULT ---
HPI - General Adult General Chief complaint: Skin/Abscess/Foreign Body Stated complaint: BUMP BEHIND R EAR/L HEADACHE/R EYE BLURRY/WATERY Time Seen by Provider: 10/14/24 17:17 Source: patient Mode of arrival: ambulatory Limitations: no limitations History of Present Illness HPI narrative: 24-year-old female patient presents to [facility] with complaints of a bump behind the right ear for the past 2 days. Patient states she recently had her gym in her right cheek replaced. Patient states that the piercing was not new she has had it there for about 5 years. Denies any pain around the piercing area. Denies any fevers, body aches or chills. Patient states the next day she noticed a little bump behind her right ear and states she has been having headaches and today noticed some watery eyes to the right eye. Patient states she has been taking ibuprofen for the pain which has helped. Related Data Home Medications ?Medication ?Instructions ?Recorded ?Confirmed ?Last Taken ?Type clonidine HCl 0.1 mg 0.1 mg PO DAILY 03/15/24 04/11/24 Unknown History tablet,extended release,12 hr lamotrigine 25 mg tablet 200 mg PO USEASDIRECTD 03/15/24 04/11/24 Unknown History hydroxyzine HCl 50 mg tablet mg 07/14/24 Unknown History lamotrigine 200 mg tablet mg 07/14/24 Unknown History Allergies Allergy/AdvReac Type Severity Reaction Status Date / Time No Known Allergies Allergy Verified 10/14/24 17:11 Review of Systems Review of Systems: CONSTITUTIONAL: Denies fever, chills, or sweats. EYES: Denies visual changes, redness, or discharge. ENT: Denies rhinorrhea, congestion, sore throat, or otalgia. Positive bump behind right ear x2 days CARDIOVASCULAR: Denies chest pain, palpitations, or edema. RESPIRATORY: Denies cough or dyspnea. GASTROINTESTINAL: Denies abdominal pain, nausea, vomiting, or diarrhea. GENITOURINARY: Denies dysuria or hematuria. SKIN: Denies rash or itching. MUSCULOSKELETAL: Denies back pain, joint pain, or myalgia. NEUROLOGIC: Denies headache, numbness, or weakness. PSYCHIATRIC: Denies anxiety or depression. [facility] Past Medical History Medical History Ulcer GERD (gastroesophageal reflux disease) Anxiety Bipolar 1 disorder Social History Social History Smoking status: Current every day smoker Tobacco type: e-cigarettes/vaping Alcohol intake: current Alcohol use details: social Substance use type: does not use Living arrangements: with family Gender identity (if verbalized by the patient): Female Comments At the time of my signature I agree with nursing past medical history, surgical, social, and family history. There is no relevant family history pertinent to the presenting complaint. Exam Narrative: GENERAL: Well-appearing, well-nourished, and in no acute distress. HEAD: Normocephalic, atraumatic. EYES: PERRLA and EOMI. ENT: Nares clear, no rhinorrhea or epistaxis. Mucous membranes moist. patient has approximately 1 cm x 0.5 cm round hardened lymph node area behind the right ear posterior auricle. There is nose erythema, no warmth no open wounds or drainage noted. No evidence of the active infection. Bilateral TMs are clear no erythema or foreign bodies the canal. NECK: Supple. No lymphadenopathy CHEST: Clear to auscultation. No respiratory distress. HEART: Regular rate and rhythm. No murmur heard. Normal peripheral pulses. ABDOMEN: Soft, nontender, nondistended, normal active bowel sounds. EXTREMITIES: Normal range of motion. No edema. SKIN: Warm, dry, no rash. NEURO: No focal deficits. Alert and oriented x3. Course Course Level of Care: Express Care Visit Vital Signs Vital signs: Vital Signs Temperature 36.6 C 10/14/24 17:19 Pulse Rate 82 10/14/24 17:19 Respiratory Rate 16 10/14/24 17:19 Blood Pressure 158/112 H 10/14/24 17:19 Pulse Oximetry 100 10/14/24 17:19 Temperature 36.6 C 10/14/24 17:19 Pulse Rate 82 10/14/24 17:19 Respiratory Rate 16 10/14/24 17:19 Blood Pressure 158/112 H 10/14/24 17:19 Pulse Oximetry 100 10/14/24 17:19 Vital signs reviewed. The patient has been informed that they may have pre-hypertension or Hypertension based on a BP reading in the department. I recommend that the patient call the primary care provider listed on their discharge instructions or a physician of their choice this week to arrange follow up for further evaluation of possible pre-hypertension or Hypertension Medical Decision Making MDM Narrative Medical decision making narrative: Discussed with patient that I do not see any evidence for an obvious infection. The skin around the piercing does not show any evidence of infection there is no infection around the bump to the posterior ear. Discussed with her that this could be just an inflamed lymph node and would recommend use of a mild warm compress to the area to help with pain and continue the Tylenol and ibuprofen. If this continues past 3 days and she needs to follow up with her primary doctor for further evaluation and treatment. Patient verbalized understanding denies any other questions or concerns at this time. Differential Diagnosis Differential Diagnosis: Differential diagnosis: Abscess, cellulitis, hidradenitis, laceration, puncture wound. Vital Signs Vital Signs: Vital Signs Temperature 36.6 C 10/14/24 17:19 Pulse Rate 82 10/14/24 17:19 Respiratory Rate 16 10/14/24 17:19 Blood Pressure 158/112 H 10/14/24 17:19 Pulse Oximetry 100 10/14/24 17:19 Temperature 36.6 C 10/14/24 17:19 Pulse Rate 82 10/14/24 17:19 Respiratory Rate 16 10/14/24 17:19 Blood Pressure 158/112 H 10/14/24 17:19 Pulse Oximetry 100 10/14/24 17:19 Critical Care Time Critical Care Time Critical Care Time: No Discharge Plan Discharge Clinical Impression: Lymph node enlargement Patient Disposition: Home, Self-Care Condition: Stable Instructions: Antibiotic Form, Lymphadenopathy (ED) Additional Instructions: May use warm compress to the lymph node area to help with pain. Continue taking Tylenol and ibuprofen as needed for pain control. If you continue to have the bump behind the ear or gets larger over the next 2-3 days then please follow-up with your primary doctor for further evaluation treatment. If your symptoms worsen including worsening headaches, fevers, body aches chills or any other concerning symptoms please follow-up in the ER soon as possible. Please follow-up with your primary doctor in regards to your blood pressure you have been advised to quit eating fast food and high salt foods and control your diet in order to lower your blood pressure. Patient Language: Maltese Prescriptions: No Action lamotrigine 25 mg tablet 200 mg PO USEASDIRECTD clonidine HCl 0.1 mg tablet extended release 12 hr 0.1 mg PO DAILY lamotrigine 200 mg tablet hydroxyzine HCl 50 mg tablet Follow-up/Referrals: Zach,Raul [Other] Time of Disposition: 17:32
[2024-10-14 17:19] VITALS: BP 158/112; PULSE 82; RESP 16; TEMP 36.6; O2SAT 100
[2024-10-14 17:31] VITALS: BP 148/96
== END 2024-10-14 17:33 | disposition home or self-care (01) ==
PROVIDERS: Emergency Provider Nurse Practitioner Family
DX: R59.9 Enlarged lymph nodes, unspecified (principal); F17.290 Nicotine dependence, other tobacco product, uncomplicated; K21.9 Gastro-esophageal reflux disease without esophagitis
CPT/HCPCS: 99211; G0463

== ENCOUNTER 2025-03-11 17:54 | Emergency (ER) | payer OTHER, SELFPAY ==
[2025-03-11] VITALS (21 sets, daily range): BP systolic 91–123; BP diastolic 60–98; PULSE 60–100; RESP 13–25; O2SAT 98–100
--- NOTE | ~2025-03-11 | XR_ITS ---
XR foot LT min 3V 03/11/2025 19:37 INDICATION: Left foot pain PROCEDURE: 3 views left foot COMPARISON: No prior studies for comparison. FINDINGS: Fracture, dislocation or subluxation is not identified. The soft tissues appear within norm al limits. No foreign bodies are identified. IMPRESSION: 1: NO ACUTE BONE OR JOINT ABNORMALITY IDENTIFIED. Reviewed, dictated and finalized at location A.
--- NOTE | ~2025-03-11 | XR_ITS ---
EXAMINATION: XR chest 1V 03/11/2025 18:27 INDICATION: CVA PROCEDURE: AP view of the chest COMPARISON: 03/15/2024 FINDINGS: The lungs are clear. The cardiomediastinal silhouette is within normal limits. There are no pleural effusions. There is no pneumothorax suspected. IMPRESSION: 1: NO ACUTE CARDIOPULMONARY DISEASE. Reviewed, dictated and finalized at location A.
--- NOTE | ~2025-03-11 | CT_ITS ---
EXAMINATION: CT BRAIN W/O DATE: 03/11/2025 18:22 INDICATION: Possible CVA. TECHNIQUE: Computed tomography (CT) of the head was performed without intravenous contrast. The dose- length product was 605.33 mGy-cm. Automated exposure control and iterative reconstruction technique w ere employed. COMPARISON: No prior studies for comparison. FINDINGS: Normal brain parenchymal volume for age. Normal olvera-white differentiation. No acute intrac ranial hemorrhage, infarction, mass or mass effect. No ventriculomegaly or midline shift. Midline sagittal images demonstrate a normal corpus callosum, c raniovertebral junction and sella turcica. Basilar cisterns are patent. Paranasal sinuses and mastoids are pneumatized. No depressed skull fractures. IMPRESSION: 1. No acute intracranial abnormality. As per stroke protocol, I called these results to emergency room, discussed with Dr. Ryan babb MD at 03/11/2025 18:39 CDT. Reviewed, dictated and finalized at location A. IMPRESSION: 1. No acute intracranial abnormality. As per stroke protocol, I called these results to emergency room, discussed wit h Dr. Ryan Reis MD at 03/11/2025 18:39 CDT.
--- OUTSIDE RECORDS SUMMARY | 2025-03-11 17:56 | XMS_ITS | Patient Health Record ---
Author Organization [facility] p Address [address] [place] [address] Care Team Providers Care Vp Strategy Name Role Phone None, No PCP Primary Care Provider Unavailabl e REASON FOR REFERRAL No Information MEDICATIONS Medication SIG (Take, Route, Fr equency, Duration) Notes Start Date End Date Status Nexplanon 68 mg Acti ve SOCIAL HISTORY Tobacco Use: Social History Observation Description Date Details (start date - stop date) Current Smoker NA - NA Sex Assigned At : Social History Observation Description Sex Assigned At Unknown Smoking History: Question Answer Notes The patient is a current daily smoker PLAN OF TREATMENT No Information Insurance Providers Payer Name Payer Address Payer Phone Subscriber Number Group Number Insured Name Patient Relationship to Insured Coverage Start Date Coverage End Date Medicaid [address] [address] [place] [address] [id number] Anayeli Hensley Self - patient is the insured 9
--- OUTSIDE RECORDS SUMMARY | 2025-03-11 17:56 | XMS_ITS | Clinical Summary ---
Author Organization [facility] Address [address] [place] [address] Phone Care Team Providers Care Operations Chief Name Role Phone Provider, None Primary Care Provider Unavailabl e Allergies No known active allergies Medications orphenadrine (NORFLEX) 100 MG TABLET SR 12 HR Take 1 Tab by mouth 2 times daily as needed for Muscle spasms. 20 Tab 09/28/2018 Active Social History Tobacco Use Types Packs/Day Years Used Date Smoking Tobacco: Never Assessed Comments No Sex and Gender Information Value Date Recorded Sex Assigned at Not on file Legal Sex Female 8:43 PM CAMERA REPAIR TECHNICIAN Gender Identity Not on file Sexual Orientation Not on file Last Filed Vital Signs Vital Sign Reading Time Taken Comments Blood Pressure 129/82 09/28/2018 1:57 PM CAMERA REPAIR TECHNICIAN Pulse 76 09/28/2018 1:57 PM CAMERA REPAIR TECHNICIAN Temperature 37.1 C (98.8 F) 09/28/2018 1:57 PM CAMERA REPAIR TECHNICIAN Respiratory Rate 20 09/28/2018 1:57 PM CAMERA REPAIR TECHNICIAN Oxygen Saturation 100% 09/28/2018 1:57 PM CAMERA REPAIR TECHNICIAN Inhaled Oxygen Concentration - - Weight 86.2 kg (190 lb) 09/28/2018 1:57 PM CAMERA REPAIR TECHNICIAN Height 157.5 cm (5' 2) 09/28/2018 1:57 PM CAMERA REPAIR TECHNICIAN Body Mass Index 34.75 09/28/2018 1:57 PM CAMERA REPAIR TECHNICIAN Plan of Treatment Health Maintenance Due Date Last Done Comments Hepatitis C Virus (HCV) Screening 2000 SARS-COV-2 Immunization ( season) 2024 03/08/2021, 02/06/2021 Influenza Immunization (#1) 2025 07/02/2013, 1 08/10/2004 Respiratory Syncytial Virus (RSV) Immunization (Adult) (1 - 1-dose 75+ series) 10/07/2075 Hepatitis B Immunization Completed 001, 2000, 2000 Pneumococcal Immunization Combined Aged Out 04/13/2002, 04/12/2001, 02/07/2001, Additional history exists No longer eligible based on patient's age to complete this topic Measles Mumps Rubella (MMR) Immunization Discontinued 10/07/2005, 01/10/2002 Polio (IPV) Immunization Discontinued 006, 04/13/2002, 02/07/2001, Additional history exists DTaP/Tdap/Td Immunization Discontinued 2012, 10/07/2005, 04/13/2002, Additional history exists TdaP Immunization Completed 07/02/2013 Varicella Immunization Discontinued 5, 01/10/2002, 10/09/2001 Human Papillomavirus (HPV) Immunization Completed 04/28/2016, 07/26/2014 Meningococcal Immunization (ACWY) Completed 03/14/2018, 07/02/2013 Rotavirus Immunization Aged Out No lo nger eligible based on patient's age to complete this topic Insurance MEDICAID [place] Care Teams Operations Chief Relationship Specialty Start Date End Date Provider, None [place] PCP - General 09/28/18
--- NOTE | 2025-03-11 18:17 | ECG_ITS ---
Test Date: 2025-03-11 18:34:34 Measurements Intervals [place] Rate: 79 P: 22 MD: 145 QRS: -8 QRSD: 98 T: 9 QT: 405 QTc: 465 Interpretive Statements SINUS RHYTHM WITH SINUS ARRHYTHMIA DELAYED PRECORDIAL R/S TRANSITION VOLTAGE CRITERIA FOR LVH BORDERLINE T WAVE ABNORMALITY- INFERIOR LEADS BASELINE WANDER- V4 BORDERLINE ECG No previous ECG available for comparison Electronically Signed On 03-11-2025 19:49:33 CDT by Geoff Ashford D.O.
[2025-03-11 18:32] LABS: Hematocrit 41.4 % (37.0-47.0); Hemoglobin 14.2 g/dL (12.0-15.0); Immature Granulocyte Percent A 0.3 % (0-0.5); Lymphocytes Absolute Auto 4.22 K/mm3 (0.9-3.2); Mean Corpuscular HGB Conc 34.3 g/dl (32-36); Mean Corpuscular Hemoglobin 29.3 pg (26-34); Mean Corpuscular Volume 85.4 fl (80-100); Nucleated Red Blood Cells Absolute Auto 0.000 K/mm3 (0.0-0.012); Nucleated Red Blood Cells Perc 0.0 % (0.0-0.2); Platelet Count Result 310 k/mm3 (150-375); Red Blood Count 4.85 M/mm3 (4.2-5.4); White Blood Count 11.2 K/mm3 (4.5-10.0)
[2025-03-11 18:45] LABS: Alanine Aminotransferase 28 U/L (6-35); Albumin Level 4.5 g/dL (3.5-5.1); Alkaline Phosphatase 87 U/L (38-126); Anion Gap 13 mmol/L (4-12); Aspartate Amino Transferase 30 U/L (14-36); Bilirubin,Total 0.6 mg/dL (0.2-1.3); Blood Urea Nitrogen 11 mg/dL (7-17); Calcium 9.4 mg/dL (8.4-10.2); Carbon Dioxide 19 mmol/L (22-30); Chloride 105 mmol/L (98-107); Estimated CRCL calculation 116 ml/min; Estimated Glomerular Filt Rate > 60; Glucose 109 mg/dL (65-110); INR 1.0; Partial Thromboplastin Time 25.9 Seconds (22.3-36.8); Potassium 3.2 mmol/L (3.4-5.0); Prothrombin Time 13.1 Seconds (11.1-14.7); Sodium 137 mmol/L (137-145); Total Protein 7.9 g/dL (6.3-8.2)
[2025-03-11 18:56] LABS: Troponin I < 0.012 ng/mL (0.000-0.034)
[2025-03-11 19:07] LABS: BEDSIDEPREGUCG Negative (Negative)
--- NOTE | 2025-03-11 19:15 | PC.NURSE ---
Pt c/o pain to left foot after tripping on it trying to come to ER. Cap refill <3 seconds
--- OUTSIDE RECORDS SUMMARY | 2025-03-11 19:21 | XMS_ITS | Clinical Summary ---
Author Organization [facility] Address [address] [place] [address] Phone Care Team Providers Care Sheet Metal Production Worker Name Role Phone Provider, None Primary Care [...] on file Legal Sex Female 8:43 PM DISPENSING LEAD Gender Identity Not on file Sexual Orientation Not on file Last Filed Vital Signs Vital Sign Reading Time Taken Comments Blood Pressure 129/82 09/28/2018 1:57 PM DISPENSING LEAD Pulse 76 09/28/2018 1:57 PM DISPENSING LEAD Temperature 37.1 C (98.8 F) 09/28/2018 1:57 PM DISPENSING LEAD Respiratory Rate 20 09/28/2018 1:57 PM DISPENSING LEAD Oxygen Saturation 100% 09/28/2018 1:57 PM DISPENSING LEAD Inhaled Oxygen Concentration - - Weight 86.2 kg (190 lb) 09/28/2018 1:57 PM DISPENSING LEAD Height 157.5 cm (5' 2) 09/28/2018 1:57 PM DISPENSING LEAD Body Mass Index 34.75 09/28/2018 1:57 PM DISPENSING LEAD Plan of Treatment Health Maintenance Due Date [...] age to complete this topic Insurance [place]ID [place] Care Teams Sheet Metal Production Worker Relationship Specialty Start Date End Date Provider, None [place] PCP - General 09/28/18
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
[2025-03-11] MEDS: KETOROLAC 30 MG/ML VIAL (*BKC) IM (20:29)
[2025-03-11] MEDS: LACTATED RINGERS 1,000 ML 999 ML IV CONT (20:29)
[2025-03-11] MEDS: PROCHLORPERAZINE EDISYLATE 10 MG/2 ML VIAL IV PUSH (20:31)
== END 2025-03-11 21:40 | disposition home or self-care (01) ==
PROVIDERS: Student in an Organized Health Care Education/Training Program; Emergency Provider Emergency Medicine
DX: R51.9 Headache, unspecified (principal); H53.9 Unspecified visual disturbance; K21.9 Gastro-esophageal reflux disease without esophagitis; F41.9 Anxiety disorder, unspecified; F31.9 Bipolar disorder, unspecified
CPT/HCPCS: 36415; 70450; 71045; 73630; 80053; 81025; 82948; 84484; 85025; 85610; 85730; 93005; 96361; 96372; 96374; 96375; 99284; J0780; J1200; J1885; J7120

== ENCOUNTER 2025-07-15 16:14 | Emergency (ER) | payer OTHER, SELFPAY ==
[2025-07-15 16:24] VITALS: BP 126/76; PULSE 104; RESP 22; TEMP 37; O2SAT 100
--- NOTE | 2025-07-15 16:36 | ED.URI ---
HPI - URI/Sore Throat General Chief Complaint: Upper Respiratory Infection Stated Complaint: Sore Throat Time Seen by Provider: 07/15/25 16:29 Source: patient and RN notes reviewed Mode of arrival: ambulatory Limitations: no limitations History of Present Illness HPI Narrative: 24-year-old female presents concern for sore throat and fatigue since last night. Reports painful swallowing. She has trace take Tylenol use Chloraseptic. Reports her tonsils are swollen. She denies runny nose, stuffy nose, cough. MD elicited complaint: sore throat Related Data Home Medications ?Medication ?Instructions ?Recorded ?Confirmed ?Last Taken ?Type clonidine HCl 0.1 mg 0.1 mg PO DAILY 03/15/24 04/11/24 Unknown History tablet,extended release,12 hr lamotrigine 25 mg tablet 200 mg PO USEASDIRECTD 03/15/24 04/11/24 Unknown History hydroxyzine HCl 50 mg tablet mg 07/14/24 Unknown History lamotrigine 200 mg tablet mg 07/14/24 Unknown History Allergies Allergy/AdvReac Type Severity Reaction Status Date / Time No Known Allergies Allergy Verified 07/15/25 16:27 Review of Systems Review of Systems: CONSTITUTIONAL: Denies malaise, chills, sweats, or fever. Reports fatigue EYES: Denies visual changes, redness, or discharge. ENT: Denies rhinorrhea, congestion, sinus pain, otalgia. Reports sore throat. CARDIOVASCULAR: Denies chest pain, palpitations, or edema. RESPIRATORY: Denies cough. Denies dyspnea. GASTROINTESTINAL: Denies abdominal pain, nausea, vomiting, diarrhea SKIN: Denies rash or itching. MUSCULOSKELETAL: Reports myalgia. NEUROLOGIC: Denies headache. All systems reviewed & are unremarkable except as noted in HPI and below [facility] Past Medical History Medical History Ulcer GERD (gastroesophageal reflux disease) Anxiety Bipolar 1 disorder Social History Social History Smoking status: Current every day smoker Tobacco type: e-cigarettes/vaping Alcohol intake: current Alcohol use details: social Substance use type: does not use Living arrangements: with family Gender identity (if verbalized by the patient): Female Comments At time of signature, agree with nursing past medical, surgical, social and family history. There is no relevant family history pertinent to the presenting complaint Exam Narrative: GENERAL: Well-appearing, well-nourished, and in no acute distress. HEAD: Normocephalic EYES: PERRLA, conjunctivae clear ENT: Nares clear. Mucous membranes moist. TM pearly olvera with sharp light reflex bilaterally; no tragal tenderness. Oropharynx erythematous without lesions. Tonsils enlarged and without exudate, no drooling, no hoarseness, no trismus, uvula midline. NECK: Supple. No lymphadenopathy CHEST: Clear to auscultation, breath sounds equal. No wheezing, rhonchi, rales, or stridor. No respiratory distress, speaks in full sentences. HEART: Regular rate and rhythm. No murmur heard. SKIN: Warm, dry, no rash. NEURO: Alert and oriented x3. PSYCH: Normal mood and affect Course Course Emergency Course: Patient is aware of diagnosis, understands and agrees to treatment plan. Anticipatory guidance given. Patient agrees to follow-up as directed and is aware of reasons to seek care at the emergency department. Portions of this record may have been created with voice recognition software Level of Care: [facility] Visit Vital Signs Vital signs: Vital Signs Temperature 98.6 F 07/15/25 16:24 Pulse Rate 104 H 07/15/25 16:24 Respiratory Rate 22 H 07/15/25 16:24 Blood Pressure 126/76 07/15/25 16:24 Pulse Oximetry 100 07/15/25 16:24 Temperature 98.6 F 07/15/25 16:24 Pulse Rate 104 H 07/15/25 16:24 Respiratory Rate 22 H 07/15/25 16:24 Blood Pressure 126/76 07/15/25 16:24 Pulse Oximetry 100 07/15/25 16:24 MDM Differential Diagnosis Differential Diagnosis: I evaluated this patient in the [facility]. History is obtained from patient who is an independent historian and physical exam was performed.? Available medical records were reviewed. ? Exam findings and relevant testing show no acute concerns or changes; patient is non-toxic appearing and is in no distress. ? Differential diagnosis considered: Pablo virus, strep pharyngitis, allergic rhinitis, upper respiratory tract infection, sinusitis, rhinosinusitis, nasopharyngitis. viral pharyngitis, otitis media, otitis externa, pneumonia, bronchitis, viral cough syndrome, viral syndrome, and influenza. Differential diagnosis and treatment plan were discussed with the patient. Patient agrees with discussion and after shared medical decision making agrees with plan of care. All questions were answered to the patient's satisfaction. Patient is appropriate for outpatient treatment and follow-up. Discharge Plan Discharge Clinical Impression: Upper respiratory infection Patient Disposition: Home Condition: Stable Instructions: Antibiotic Form, Strep Throat (ED) Additional Instructions: -Take the medication as prescribed. Throw away the toothbrush after 24hours of antibiotic. -Eat and drink things that are easy to swallow, like tea or soup, or popsicles to suck on. -Oral rinses such as: Salt water gargles and/or may use topical anesthetic (eg. Chloraseptic spray) or lozenges to relieve dryness or throat pain). -Take Tylenol and ibuprofen as needed for pain and fever as directed. -Frequent hand washing or hand foreman/pile driving and erection is one of the best ways to prevent spread of infection. -Follow up with primary care provider in 2-3 days if condition is not improving; or seek ER visit if you have trouble breathing, cannot drink enough fluids, have muffled voice, difficulty opening your mouth, or severe swelling. Patient Language: Japanese Prescriptions: New prednisone 20 mg tablet 20 mg PO DAILY 3 Days Qty: 3 0RF penicillin V potassium 500 mg tablet 500 mg PO Q12H 10 Days Qty: 20 0RF No Action lamotrigine 25 mg tablet 200 mg PO USEASDIRECTD clonidine HCl 0.1 mg tablet extended release 12 hr 0.1 mg PO DAILY lamotrigine 200 mg tablet hydroxyzine HCl 50 mg tablet Follow-up/Referrals: PHYSICIAN,[employer] [Primary Care Provider, Internal Medicine] Stand Alone Forms: Work/School Release IP Time of Disposition: 16:37
[2025-07-15 16:39] LABS: EDSTREPNEGPOS1 Positive (Negative)
== END 2025-07-15 16:49 | disposition home or self-care (01) ==
PROVIDERS: Emergency Provider Nurse Practitioner
DX: J06.9 Acute upper respiratory infection, unspecified (principal); F17.290 Nicotine dependence, other tobacco product, uncomplicated; K21.9 Gastro-esophageal reflux disease without esophagitis; F41.9 Anxiety disorder, unspecified; F31.9 Bipolar disorder, unspecified
CPT/HCPCS: 87880; 99213; G0463